=== PATIENT | female | born 1985 | race Caucasian/White ===

== ENCOUNTER → 2020-08-10 | Outpatient (CLI) | payer OTHER ==
--- NOTE | 2020-08-10 09:53 | MM ---
Reason for exam: screening (asymptomatic). Baseline mammogram. History: Took hormonal contraceptives beginning at age 15. Physical Findings: Nurse did not find any significant physical abnormalities on exam. MG 3D Screening Mammo W/Cad Bilateral CC and MLO view(s) were taken. The breast tissue is heterogeneously dense. This may lower the sensitivity of mammography. There is no discrete abnormality. These results were verbally communicated with the patient and result sheet given to the patient on 08/10/20. ASSESSMENT: Negative, BI-RAD 1 RECOMMENDATION: Routine screening mammogram of both breasts at age 38.
== END | disposition home or self-care (01) ==
LOC: RADMAMWWP 07:44
PROVIDERS: ATTEND Obstetrics & Gynecology
DX: Z12.31 Encounter for screening mammogram for malignant neoplasm of breast (principal)
CPT/HCPCS: 77063; 77067

== ENCOUNTER → 2022-07-03 | Outpatient (CLI) | payer OTHER ==
[2022-07-04 01:37] LABS: Basophils # (A) 0.04 X 10*3/uL (0.00-0.10); Basophils % (A) 0.5 %; Eosinophils # (A) 0.11 X 10*3/uL (0.04-0.35); Eosinophils % (A) 1.3 %; HCT 38.4 % (37.2-46.3); HGB 12.2 g/dL (12.0-15.0); Immature Grans, Automated 0.1 %; Lymphocytes # (A) 2.05 X 10*3/uL (0.90-5.00); Lymphocytes % (A) 25.1 %; MCH 31.2 pg (27.0-32.0); MCHC 31.8 g/dL (32.0-37.0); MCV 98.2 fL (80.0-97.0); Mean Platelet Volume 11.3 fL (9.5-12.2); Monocytes # (A) 0.48 X 10*3/uL (0.20-1.00); Monocytes % (A) 5.9 %; NRBC Per 100 WBC 0 /100 WBCS (0.0-0.0); Neutrophils # (A) 5.49 X 10*3/uL (1.80-7.70); Neutrophils % (A) 67.1 %; Platelet Count 252 X 10*3/uL (140-440); RBC 3.91 X 10*6/uL (4.10-5.20); RDW 12.7 % (11.5-14.5); WBC 8.18 X 10*3/uL (4.50-10.00)
== END | disposition home or self-care (01) ==
LOC: LABWHC1 16:02
PROVIDERS: ATTEND Obstetrics & Gynecology
DX: Z01.812 Encounter for preprocedural laboratory examination (principal)
CPT/HCPCS: 36415; 85025

== ENCOUNTER 2022-07-12 07:56 | Day surgery (SDC) | payer OTHER ==
[2022-07-09 12:05] VITALS: BMI 23.3
--- NOTE | 2022-07-11 17:07 | P.HPOB ---
History of Present Illness H&P Date: 07/11/22 Chief Complaint: Menorrhagia with regular cycle, family planning This is a 37 y.o. female, 2, para 2, who presents for dilatation and curettage with hysteroscopy and Novasure endometrial ablation, IUD removal and laparoscopic bilateral tubal ligation via fulgaration with Davinci due to heavy, painful menses. She currently has a Paragard IUD in place and would like it removed. Pelvic US shows uterus measuring 7.8 x 4.8 x 4.5 cm and small follicle cysts on both ovaries. Lining thickness was normal with IUD in position. OB Hx: . History of 2 vaginal deliveries. 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 Currently using IUD for control. Social Hx: . Works at [employer]. Review of Systems Constitutional: Denies chills, Denies fever Eyes: denies blurred vision, denies pain Ears, nose, mouth and throat: Denies headache, Denies sore throat Cardiovascular: Denies chest pain, Denies shortness of breath Respiratory: Denies cough Gastrointestinal: Reports bloating (with menses), Denies abdominal pain, Denies diarrhea, Denies nausea, Denies vomiting Genitourinary: Reports dysmenorrhea, Reports menorrhagia Menstruation: Reports period heavy Musculoskeletal: Denies myalgias Integumentary: Denies pruritus, Denies rash Neurological: Reports headaches (with menses), Denies numbness, Denies weakness Psychiatric: Denies anxiety, Denies depression Endocrine: Denies fatigue, Denies weight change Past Medical History Past Medical History: No Reported History Additional Past Medical History / Comment(s): HEAVY MENSES WITH CLOTS History of Any Multi-Drug Resistant Organisms: None Reported Additional Past Surgical History / Comment(s): WISDOM TEETH REMOVED UNDER ANESTHESIA Past Anesthesia/Blood Transfusion Reactions: No Reported Reaction Past Psychological History: No Psychological Hx Reported Smoking Status: Former smoker Past Alcohol Use History: Occasional Past Drug Use History: None Reported - Past Family History Mother Family Medical History: No Reported History Medications and Allergies Home Medications Medication Instructions Recorded Confirmed Type No Known Home Medications 07/09/22 07/09/22 History Allergies Allergy/AdvReac Type Severity Reaction Status Date / Time No Known Allergies Allergy Verified 07/09/22 11:57 Exam Osteopathic Statement: *. No significant issues noted on an osteopathic structural exam other than those noted in the History and Physical/Consult. HEENT: within normal limits Heart: regular rate and rhythm Lungs: clear to auscultation bilaterally Abdomen: soft, non-tender Pelvic: uterus retroverted, non-tender, no adnexal masses or tenderness noted, IUD strings visible. Extremities: neg. Alyla's Assessment and Plan (1) Menorrhagia with regular cycle Status: Acute Code(s): N92.0 - EXCESSIVE AND FREQUENT MENSTRUATION WITH REGULAR CYCLE SNOMED Code(s): 897723908 (2) Family planning Status: Acute Code(s): Z30.09 - ENCOUNTER FOR OT GENERAL CNSL AND ADVICE ON CONTRACEPTION SNOMED Code(s): 791088806 Plan: Proceed with dilatation and curettage with hysteroscopy and Novasure endometrial ablation and IUD removal along with laparoscopic bilateral tubal ligation with fulgaration with Davinci. I have discussed the risks, benefits, and alternative therapies for the above- mentioned procedure and for both sedation/anesthesia as well as necessary blood products administration, if indicated, as they pertain to this patient. The patient has indicated her understanding and acceptance of the risks and procedures discussed.
[~2022-07-12 07:56] MED LIST: DEXAMETHASONE SOD PHOSPHATE 4 MG/ML 1 ML VIAL IV ONE; LACTATED RINGERS 1,000 ML IV SCH; MIDAZOLAM 2 MG/2 ML VIAL IV PRN; ONDANSETRON 4 MG/2 ML VIAL IVP ONE; Pre Op ABX Message 1 EACH MISC MISCELLANE ONE; SCOPOLAMINE 1 MG/72 HR PATCH TRANSDERM ONE
[2022-07-12] MEDS ORDERED: LIDOCAINE 1% (10MG/ML) FOR IV START INTRADERMA ONE (08:51)
[2022-07-12] MEDS ORDERED: SUCCINYLCHOLINE CHLORIDE 200 MG/10 ML VIAL IV ONE (09:51)
[2022-07-12] MEDS ORDERED: NEOSTIGMINE 1 MG/ML 10 ML VIAL ONE (09:51)
[2022-07-12] MEDS ORDERED: fentaNYL (PF) 50 MCG/ML 2 ML AMP ONE (09:51)
[2022-07-12] MEDS ORDERED: HYDROmorphone (PF) 1 MG/ML ONE (09:51)
[2022-07-12] MEDS ORDERED: MIDAZOLAM 2 MG/2 ML VIAL ONE (09:51)
[2022-07-12] MEDS ORDERED: GLYCOPYRROLATE 0.2 MG/ML 2 ML VIAL ONE (09:51)
[2022-07-12] MEDS ORDERED: KETOROLAC 15 MG/ML 1 ML VIAL ONE (09:51)
[2022-07-12] MEDS ORDERED: PROPOFOL 10 MG/ML 20 ML VIAL IV ONE (09:51)
[2022-07-12] MEDS ORDERED: LIDOCAINE 2% INJ 20 MG/ML (2 ML VIAL) ONE (09:51)
[2022-07-12] MEDS ORDERED: SODIUM CHLORIDE 0.9% 50 ML with ceFAZolin 2,000 MG IV ONE ×2 (09:56)
[2022-07-12] MEDS ORDERED: BUPIVACAINE (PF) 0.25% 30 ML VIAL SQ ONE ×2 (10:36)
[2022-07-12] MEDS: HYDROmorphone 0.5 MG/0.5 ML SYRINGE IVP PRN ×2 (11:18→11:41)
--- NOTE | 2022-07-12 11:19 | P.OP ---
Date of Procedure: 07/12/22 Preoperative Diagnosis: Menorrhagia with her cycle Family planning Postoperative Diagnosis: Same Procedure(s) Performed: Removal of IUD Dilation and curettage with hysteroscopy and NovaSure endometrial ablation Laparoscopic bilateral tubal ligation via fulguration with da Douglas Anesthesia: CLIFF Surgeon: Kathleen Hardy Estimated Blood Loss (ml): 10 Pathology: other (Endometrial curettings) Condition: stable Disposition: floor Indications for Procedure: This is a 37 y.o. female, 2, para 2, who presents for dilatation and curettage with hysteroscopy and Novasure endometrial ablation, IUD removal and laparoscopic bilateral tubal ligation via fulgaration with Davinci due to heavy, painful menses. She currently has a Paragard IUD in place and would like it removed. Pelvic US shows uterus measuring 7.8 x 4.8 x 4.5 cm and small follicle cysts on both ovaries. Lining thickness was normal with IUD in position. Operative Findings: Uterus is retroverted and sounded to 8 cm. Cervix is sounded to 3 cm. Upon hysteroscopy, dyssynchronous endometrial pattern is noted. The right tubal ostia is visualized. The left tubal ostia is not well visualized. A moderate amount of endometrial curettings are obtained. Normal uterus tubes and ovaries are noted on laparoscopy. Appendix is visualized and appears normal. Description of Procedure: The patient is taken to the operating room. She is placed in the dorsal li thotomy position on a pink pad with arms padded and tucked at her side after general anesthesia was given. She is prepped and draped in the normal sterile fashion. Bladder is drained with a catheter and then removed. Pelvic exam is performed under anesthesia. Uterus is found to be retroverted with no adnexal masses. She is placed in slight Trendelenburg position. A right angle retractor is used to visualize the cervix. IUD strings are visualized and IUD is grasped with a ring forcep and removed intact and discarded. The anterior lip of the cervix is grasped with an Allis clamp. Cervix is sounded to 3 cm. Uterus is sounded to 8 cm. Cervix is gently dilated with Wills dilators until a hysteroscope could be passed. Hysteroscopy is performed using normal saline. The above noted findings are noted. Next a polyp forceps is introduced. Minimal tissue was obtained. Next medium-sized size sharp curette was placed. A moderate amount of endometrial curettings were obtained. Next NovaSure array was inserted into the endometrial cavity. Length was set at 5 cm and width was determined to be 2.7 cm. Next cavity assessment was completed and passed on the first try. Next NovaSure array was fired at 74 W for 94 seconds. Next the array was removed, inspected and then discarded. Next the hysteroscope was reinserted. Uniform charring was noted. Pictures were taken. Hysteroscope was removed. Allis clamp was removed from the anterior lip of the cervix. No bleeding was noted. A kroner uterine manipulator is then inserted through the cervix and the balloon is inflated. All other instruments removed from the vagina. Gloves are changed and attention is turned to the abdomen. The uterus is anteverted by assistant corporate secretary and marked on the abdomen. An incision is made appro ximately 10 cm above the marked uterus just above the umbilicus. A 5 mm disposable blade this trocar is then inserted into the peritoneal cavity under direct visualization. The insert is removed and the camera was replaced. Intraperitoneal placement is confirmed and gas is placed on high flow. Next the patient is placed in 25 of Trendelenburg. An incision is made approximately 8 cm to the right of the umbilicus and just below the umbilicus. An 8 mm robotic trocar is then placed under direct visualization. The camera was then reinserted through this trocar and the same spot is marked on the left side of the abdomen. A small cut was made and an 8 mm robotic trocar is inserted under direct visualization on the left side. Next the midline 5 mm trocar is removed and replaced with an 8 mm robotic trocar. Next the legs are brought down slightly and then the robot is docked to the patient from the right side of the patient. The robotic arms or tattoos to the trochars. The robotic camera is then placed through the middle port. A monopolar scissors is placed through the right port under direct visualization. A fenestrated bipolar instrument was placed through the left port under direct visualization. A smoke evacuator is attached to one of the ports. I then broke scrub and went to the robotic console. The left fallopian tube is grasped with the fenestrated bipolar and t hen cauterized on the midportion of the tube in several spots next to each other. Excellent hemostasis was noted. The same procedure is carried out on the right fallopian tube. Excellent hemostasis is noted. A picture is taken. Next the instrument's are removed from the patient and the camera is removed. Trochars are then opened up to allow the gas out of the patient and then removed. The trocar incisions are then closed with 4-0 undyed Vicryl suture in a subcuticular fashion. Incisions are then injected with quarter percent Marcaine. Approximately 8 mL are used. The kroner uterine manipulator is then deflated and removed. No active bleeding is noted. All sponge and needle counts are correct. The patient is then taken to recovery room in stable condition.
[2022-07-12 11:23] VITALS: TEMP 97
[2022-07-12] MEDS ORDERED: LACTATED RINGERS 1,000 ML IV ONE ×2 (11:46)
[2022-07-12 13:04] VITALS: BP 105/63; PULSE 76; RESP 15
== END 2022-07-12 13:25 | disposition home or self-care (01) ==
LOC: OR 07:56
PROVIDERS: ATTEND Obstetrics & Gynecology
DX: N85.8 Other specified noninflammatory disorders of uterus (principal); Z30.2 Encounter for sterilization; Z30.432 Encounter for removal of intrauterine contraceptive device; F10.20 Alcohol dependence, uncomplicated; Z87.891 Personal history of nicotine dependence
CPT/HCPCS: 58563; 58670; 58301; 81025; J2250; J0330; J1100; J2710; J2405; J0690; J3010; J1170 ×2; J1885; J2704; J2001; 88305

== ENCOUNTER → 2023-07-11 | Outpatient (CLI) | payer OTHER ==
--- NOTE | 2023-07-11 20:25 | MM ---
Reason for Exam: Screening (asymptomatic). Last mammogram was performed 2 year(s) and 11 month(s) ago. Patient History: Menarche at age 10. First Full-Term at age 18. Premenopausal. Hormonal Contraceptives, from age 15 until age 21. Mother had breast cancer, left, at or over age 50. Risk Values: Aileen 5 year model risk: 1.1%. NCI Lifetime model risk: 18.3%. Prior Study Comparison: 08/10/2020 Bilateral Screening Mammogram, [facility]. Tissue Density: The breast tissue is heterogeneously dense. This may lower the sensitivity of mammography. Findings: Analyzed By CAD. There is no suspicious group of microcalcifications or new suspicious mass in either breast. Overall Assessment: Negative, BI-RAD 1 Management: Screening Mammogram of both breasts in 1 year. . Patient should continue monthly self-breast exams. A clinical breast exam by your physician is recommended on an annual basis. This exam should not preclude additional follow-up of suspicious palpable abnormalities. Note on Aileen scores and lifetime risk: 1. A Aileen score greater than 3% is considered moderate risk. If this is the case, consider specialist referral to assess eligibility for a risk reducing agent. 2. If overall lifetime risk for the development of breast cancer is 20% or higher, the patient may qualify for future screening with alternating mammogram and breast MRI. Electronically signed and approved by: Tami Gillette M.D. Radiologist
== END | disposition home or self-care (01) ==
LOC: RADMAMWWP 07:42
PROVIDERS: ATTEND Family Medicine
DX: Z12.31 Encounter for screening mammogram for malignant neoplasm of breast (principal); Z80.3 Family history of malignant neoplasm of breast
CPT/HCPCS: 77063; 77067

== ENCOUNTER 2024-12-04 17:43 | Emergency (ER) | payer OTHER ==
[2024-12-04] MEDS: ACETAMINOPHEN TAB 500 MG TAB PO STA (18:58)
--- NOTE | 2024-12-04 18:59 | ED ---
Lower Extremity Injury HPI - General Chief Complaint: Extremity Injury, Lower Stated Complaint: L foot injury Time Seen by Provider: 12/04/24 18:55 Source: patient, RN notes reviewed Mode of arrival: wheelchair Limitations: no limitations - History of Present Illness Initial Comments: 39-year-old female presenting for left ankle injury 2 hours ago. States she was stepping out of a camper and twisted her left ankle on the way down. States she has swelling to the lateral aspect of her left ankle and she is unable to weight-bear. States she also fell back and hit the back of her head. States she may have had a brief episode of "blacking out" but denies headache, nausea/vomiting, vision change. Denies blood thinners. - Related Data Previous Rx's Medication Instructions Recorded oxyCODONE HCL [OxyIR] 5 mg PO Q6H PRN 3 Days #12 tab 07/12/22 Allergies Allergy/AdvReac Type Severity Reaction Status Date / Time No Known Allergies Allergy Verified 12/04/24 18:09 Review of Systems ROS Statement: Those systems with pertinent positive or pertinent negative responses have been documented in the HPI. ROS Other: All systems not noted in ROS Statement are negative. Past Medical History Past Medical History: No Reported History Additional Past Medical History / Comment(s): HEAVY MENSES WITH CLOTS History of Any Multi-Drug Resistant Organisms: None Reported Additional Past Surgical History / Comment(s): WISDOM TEETH REMOVED UNDER ANESTHESIA Past Anesthesia/Blood Transfusion Reactions: No Reported Reaction Past Psychological History: No Psychological Hx Reported Smoking Status: Former smoker Past Alcohol Use History: Occasional Past Drug Use History: None Reported - Past Family History Mother Family Medical History: No Reported History General Exam Limitations: no limitations General appearance: alert, in no apparent distress Head exam: Present: atraumatic, normocephalic, normal inspection Eye exam: Present: normal appearance, PERRL, EOMI. Absent: scleral icterus, conjunctival injection, periorbital swelling ENT exam: Present: normal exam, mucous membranes moist Neck exam: Present: normal inspection. Absent: tenderness, meningismus, lymphadenopathy Left Lower Leg exam: Present: normal inspection, full ROM. Absent: tenderness, swelling Ankle exam: Present: tenderness, swelling. Absent: normal inspection (Moderate edema and tenderness along left lateral malleolus), full ROM, deformity, dislocation Foot/Toe exam: Present: normal inspection, full ROM. Absent: tenderness, swelling Neurovascular tendon exam: Present: no vascular compromise. Absent: pulse deficit, abnormal cap refill, sensory deficit Neurological exam: Present: alert, oriented X3, CN II-XII intact Course Vital Signs 12/04/24 18:01 Temperature 98.4 F Pulse Rate 86 Respiratory 18 Rate Blood Pressure 137/88 O2 Sat by Pulse 99 Oximetry Medical Decision Making - Medical Decision Making Was pt. sent in by a medical professional or institution (, [facility], [facility], urgent care, hospital, or senior care...) When possible be specific @ -No Did you speak to anyone other than the patient for history (EMS, parent, family, police, friend...)? What history was obtained from this source @ -No Did you review nursing and triage notes (agree or disagree)? Why? @ -I reviewed and agree with nursing and triage notes Were old charts reviewed (outside hosp., previous admission, EMS record, old EKG, old radiological studies, urgent care reports/EKG's, senior care records)? Report findings @ -No old charts were reviewed Differential Diagnosis (chest pain, altered mental status, abdominal pain women, abdominal pain men, vaginal bleeding, weakness, fever, dyspnea, syncope, headache, dizziness, GI bleed, back pain, seizure, CVA, palpatations, mental health, musculoskeletal)? @ -Differential Musculoskeletal Muscular strain, contusion, ligament sprain, fracture, arthritis, septic arthritis, bursitis, cellulitis, muscle spasm, nerve compression, DVT, arterial occlusion, herpes zoster, electrolyte abnormality, tumor.... This is not meant to be in all inclusive list EKG interpreted by me (3pts min.). @ -None X-rays interpreted by me (1pt min.). @ -X-ray left ankle reveals soft tissue swelling around the lateral malleolus, no acute fracture or dislocation CT interpreted by me (1pt min.). @ -None done U/S interpreted by me (1pt. min.). @ -None done What testing was considered but not performed or refused? (CT, X-rays, U/S, labs)? Why? @ -None What meds were considered but not given or refused? Why? @ -None Did you discuss the management of the patient with other professionals (professionals i.e. , [facility], [facility] ST[employer]FF [employer]TER, lab, RT, psych nurse, social human services assistants, thoracic medicine specialist, teacher, branch officer, case managers)? Give summary @ -No Was smoking cessation discussed for >3mins.? @ -No Was critical care preformed (if so, how long)? @ -No Were there social determinants of health that impacted care today? How? (Homelessness, low income, unemployed, alcoholism, drug addiction, transportation, low edu. Level, literacy, decrease access to med. care, penitentiary, rehab)? @ -No Was there de-escalation of care discussed even if they declined (Discuss DNR or withdrawal of care, Hospice)? DNR status @ -No What co-morbidities impacted this encounter? (DM, HTN, Smoking, COPD, CAD, Cancer, CVA, ARF, Chemo, Hep., AIDS, mental health diagnosis, sleep apnea, morbid obesity)? @ -None Was patient admitted / discharged? Hospital course, mention meds given and route, prescriptions, significant lab abnormalities, going to OR and other pertinent info. @ -Discharge. 39-year-old female presenting for left ankle injury 2 hours ago. Patient is unable to weight-bear. Neurovascularly intact. Patient also admits to hitting her head however denies headache, nausea/vomiting, vision changes. Neurological examination unremarkable. Denies blood thinners. There are no obvious signs of trauma to the head such as hematomas, contusions, or abrasions. X-ray left ankle reveals soft tissue swelling around the lateral malleolus otherwise no acute fracture or dislocation. Discussed diagnosis of left ankle s prain. Aircast was applied. Patient states she has crutches at home. Also discussed diagnosis of acute head injury. Appropriate return precautions and follow-up care discussed. Undiagnosed new problem with uncertain prognosis? @ -No Drug Therapy requiring intensive monitoring for toxicity (Heparin, Nitro, Insulin, Cardizem)? @ -No Were any procedures done? @ -No Diagnosis/symptom? @ -Left ankle sprain Acute, or Chronic, or Acute on Chronic? @ -Acute Uncomplicated (without systemic symptoms) or Complicated (systemic symptoms)? @ -Uncomplicated Side effects of treatment? @ -No Exacerbation, Progression, or Severe Exacerbation? @ -No Poses a threat to life or bodily function? How? (Chest pain, USA, ID, pneumonia, PE, COPD, DKA, ARF, appy, cholecystitis, CVA, Diverticulitis, Homicidal, Lou cidal, threat to staff... and all critical care pts) @ -No Disposition Clinical Impression: Left ankle sprain Disposition: HOME SELF-CARE Condition: Stable Instructions (If sedation given, give patient instructions): Ankle Sprain (ED) Additional Instructions: Use Aircast as needed for comfort. Elevate and ice the left ankle for the next 48 hours. Follow-up with orthopedics as discussed if there is no improvement in 2 weeks. Please return to the Emergency Department if symptoms worsen or any other concerns. Is patient prescribed a controlled substance at d/c from ED?: No Referrals: Janel Medrano DO [Primary Care Provider] - 1-2 days Time of Disposition: 20:01
--- NOTE | 2024-12-04 19:15 | XR ---
EXAMINATION TYPE: XR ankle complete LT DATE OF EXAM: 12/04/2024 7:08 PM COMPARISON: None. CLINICAL INDICATION: Female, 39 years old with history of left ankle injury, pain TECHNIQUE: 3 view(s) obtained. FINDINGS: Soft tissue swelling is over the lateral malleolus. Ankle mortise is intact. Some secondary ossificat ion centers are medial to the medial malleolus. No acute fracture or dislocation evident. Achilles te ndon Calcaneal heel spur is present. Follow up exams can be performed 710 days from acute trauma for continued pain IMPRESSION: 1. Soft tissue swelling lateral malleolus. 2. Calcaneal heel spur [facility], , 12/04/2024 7:13 PM
[2024-12-04 20:27] VITALS: BP 119/78; PULSE 60; RESP 16; TEMP 98.3
== END 2024-12-04 20:20 | disposition home or self-care (01) ==
LOC: EC 17:43
DX: S93.402A Sprain of unspecified ligament of left ankle, initial encounter (principal); Z87.891 Personal history of nicotine dependence; X50.1XXA Overexertion from prolonged static or awkward postures, initial encounter
CPT/HCPCS: 73610; 99283; 29515; L4350